=== PATIENT | female | born 1970 | race Caucasian/White ===

== ENCOUNTER 2019-07-26 07:42 | Inpatient (IN) | payer OTHER ==
[2019-07-26] MEDS ORDERED: Aspirin Chewable 81 MG TAB ONE (08:00)
--- NOTE | 2019-07-26 08:04 | RAD ---
RADIOGRAPH CHEST 1 VIEW: DATE: 07/26/2019 HISTORY: 49-year-old female with dyspnea and chest pain FINDINGS: There are no airspace densities, pulmonary edema, pneumothorax, or cardiomegaly. The lateral costophr enic angles are sharp. IMPRESSION: No acute cardiopulmonary findings.
[2019-07-26] MEDS ORDERED: Ondansetron PF 4 MG/2 ML Vial ONE ×2 (08:05→09:49)
[2019-07-26] MEDS ORDERED: Fentanyl 100 MCG/2 ML VIAL ONE (08:05)
[2019-07-26 08:34] LABS: #Basophils 0.1 thou/uL (0.0-0.2); #Eosinphils 0.3 thou/uL (0.0-0.7); #Lymphocytes 3.8 thou/uL (1.20-3.40); #Monocytes 0.5 thou/uL (0.11-0.59); #Neutrophils 4.3 thou/uL (1.40-6.50); %Basophils 0.7 % (0.0-1.0); %Eosinophils 2.8 % (0.0-10.0); %Lymphocytes 42.2 % (21.0-51.0); %Monocytes 5.9 % (0.0-10.0); %Neutrophils 48.3 % (42.0-75.0); Hemoglobin 14.5 g/dL (12.0-16.0); Mean Corpuscular HGB CONC 34.7 g/dL (32.0-36.0); Mean Corpuscular Hemoglobin 31.7 pg (27.0-31.0); Mean Corpuscular Volume 91.6 fL (78.0-98.0); Mean Platelet Volume 7.8 fL (7.4-10.4); Platelet Count 219 thou/uL (130-400); RBC Distribution Width 11.8 % (11.5-14.5); Red Blood Cell (RBC) Count 4.57 mill/uL (4.20-5.40); White Blood Cell (WBC) Count 8.9 thou/uL (4.8-10.8)
--- NOTE | 2019-07-26 08:38 | CT ---
CT BRAIN WITHOUT CONTRAST: HISTORY: Left arm pain. FINDINGS: No evidence of acute infarct, hemorrhage, midline shift, or abnormal extraaxial fluid collections is seen. The ventricular size is normal and the basilar cisterns patent. The bony calvarium is intact. The visualized paranasal sinuses and mastoid air cells are well aerated. IMPRESSION: No CT evidence of acute intracranial process. POS: [facility]
[2019-07-26 08:53] LABS: ALT (SGPT) 28 U/L (8-55); AST (SGOT) 24 U/L (5-34); Albumin 3.7 g/dL (3.5-5.0); Alkaline Phosphatase 67 U/L (40-110); Anion Gap 16 mmol/L (10-20); BUN (Urea Nitrogen) 16 mg/dL (7.0-18.7); Bilirubin, Total 0.3 mg/dL (0.2-1.2); Calc. Creatinine Clearance 0 mL/min (70-130); Calcium 9.1 mg/dL (7.8-10.44); Carbon Dioxide 18 mmol/L (22-29); Chloride 107 mmol/L (98-107); Estimated GFR-MDRD 81; Globulin 3.5 g/dL (2.4-3.5); Glucose 134 mg/dL (70-105); Potassium 3.6 mmol/L (3.5-5.1); Protein, Total 7.2 g/dL (6.0-8.3); Sodium 137 mmol/L (136-145)
[2019-07-26] MEDS ORDERED: Pantoprazole 40 MG VIAL IVP SCH (10:00)
[2019-07-26] MEDS ORDERED: methylPREDNISolone Sod Succ/PF 125 MG/2 ML VIAL ONE (10:24)
--- NOTE | 2019-07-26 11:07 | CT ---
CT CHEST WITH IV CONTRAST CT ABDOMEN WITH IV CONTRAST CT PELVIS WITH IV CONTRAST: Date: 07/26/2019 HISTORY: Epigastric pain. FINDINGS: No mediastinal, hilar, or axillary mass or lymphadenopathy is seen. No pleural or pericardial effusio ns are identified. There are coronary artery calcifications. There is a 4.5 cm bulla in the periphera l aspect of the right upper lobe. There are dependent changes in the lung bases. A calcified granulo ma is seen in the right lower lobe. The liver, pancreas, adrenal glands, and kidneys appear normal. No calcified gallstones are seen. The re are calcified granulomas in the spleen. No free air, free fluid, or lymphadenopathy seen in the abdomen or pelvis. Uterus and ovaries are pre sent. The small bowel loops are not abnormally dilated. A normal appearing appendix is present. There are vascular calcifications without evidence of aneurysmal dilatation of the thoracoabdominal a larissa. There are degenerative changes in the thoracolumbar spine. No osteolytic or osteoblastic lesion s are seen. IMPRESSION: No CT evidence of acute process in the chest, abdomen, or pelvis. POS: [facility]
[2019-07-26] MEDS ORDERED: Pantoprazole 40 MG VIAL ONE (11:59)
[2019-07-26 12:16] LABS: Bacteria/HPF None Seen HPF (None Seen); Bilirubin Negative (Negative); Clarity Clear (Clear); Glucose, Urine (Dipstick) Normal (Negative); Ketone, Urine 40 mg/dL (Negative); Leukocyte Negative Leu/uL (Negative); Nitrite Negative (Negative); Protein, Urine (Dipstick) 30 mg/dL (Neg-Trace); Urobilinogen Normal mg/dL (Less than 2); WBC/HPF 0-3 HPF (0-3); pH, Urine 6.5 (5.0-9.0)
[2019-07-26 12:20] LABS: Specific Gravity, Urine Greater than 1.060 (1.002-1.036)
[2019-07-26 12:21] LABS: Blood, Urine Negative (Negative)
[2019-07-27 11:57] LABS: SARS-CoV-2 MS2 Positive; SARS-CoV-2 N Gene Negative; SARS-CoV-2 S Gene Negative; SARS-CoV-2 orf1ab Negative
--- NOTE | 2019-07-29 15:31 | EKG ---
Test Reason : Blood Pressure : / mmHG Vent. Rate : 063 BPM Atrial Rate : 063 BPM P-R Int : 200 ms QRS Dur : 092 ms QT Int : 446 ms P-R-T Axes : 041 061 092 degrees QTc Int : 456 ms Normal sinus rhythm Normal ECG T wave inversion pauline lateral leads Confirmed by SURYA AG, NOBLE ([id number]), makeup editor GORDON LIU ([id number]) on 07/29/2019 3:30:30 PM Referred By: Confirmed By:NOBLE LONDON MD
== END 2019-07-26 13:33 | disposition left against medical advice (07) | DRG 312 ==
LOC: ERS 07:42 → ERHOLD 10:56
PROVIDERS: ADMIT Internal Medicine; ATTEND Internal Medicine
DX: R55 Syncope and collapse (principal); I95.9 Hypotension, unspecified; E11.9 Type 2 diabetes mellitus without complications; E78.5 Hyperlipidemia, unspecified; F17.210 Nicotine dependence, cigarettes, uncomplicated; Z86.018 Personal history of other benign neoplasm; Z88.8 Allergy status to other drugs, medicaments and biological substances; Z91.040 Latex allergy status; Z20.828 Contact with and (suspected) exposure to other viral communicable diseases
CPT/HCPCS: 36415; 36416; 70450; 71045; 71260; 74177; 80053; 81003; 81015; 83605; 84484; 85025; 87040; 87086; 87635; 93005; 96361; 96365; 96375; 96376; C9113; J1956; J2405; J2930; J3010; U0003

== ENCOUNTER 2021-01-29 17:26 | Emergency (ER) ==
[2021-01-29] MEDS ORDERED: Nitroglycerin 2% Ointment 1 INCH/1 GM Packet ONE (18:58)
[2021-01-29] MEDS ORDERED: Aspirin 325 MG TAB ONE (18:58)
== END 2021-01-29 19:10 | disposition left against medical advice (07) ==
LOC: ERS 17:26
DX: R07.9 Chest pain, unspecified (principal); E11.9 Type 2 diabetes mellitus without complications; E78.5 Hyperlipidemia, unspecified; F17.210 Nicotine dependence, cigarettes, uncomplicated; Z79.899 Other long term (current) drug therapy
CPT/HCPCS: 71045; 93005